=== PATIENT | female | born 1960 | race Caucasian/White ===

== ENCOUNTER 2018-09-10 14:06 | Inpatient (IN) | payer OTHER ==
[~2018-09-10] VITALS: Ht 172.7 cm; Wt 108.6 kg
[2018-09-10 14:06] VITALS: BP 125/81
[~2018-09-10 14:06] MED LIST: ACTOS 45 MG45 M1 PO; ASPIRIN325 PO; AZITHROMYCIN 2250 MG PO; BACTROBAN CREAM30 G1; CARDIZEM CD240 MG PO; CEFTIN 250 MG250 MG PO; CEFTRIAXONE2 GM IV; CELEBREX 200 M200 M1 PO; CINNAMON500 MG PO; CLEOCIN HCL150 MG PO; CLEOCIN HCL300 MG PO; CO Q-10100 MG PO; COUMADIN 2.5MG2.5 M1 PO; CYCLOBENZAPRINE10 MG PO; CYMBALTA60 MG PO; DETROL1 MG PO; DIPHENHIST25 M1 PO; DOXYCYCLINE 10100 M1 PO; ENOXAPARIN100 MG/1 M SQ; ENOXAPARIN30 MG/0.3 SQ; FISH OIL 1,001000 M2 PO; FLEXERIL PO; GLUCOPHAGE XR500 M1 PO; JANTOVEN5 MG PO; JANTOVEN7.5 MG PO; JANUVIA100 MG PO; JANUVIA25 MG; KEFLEX500 M1 PO; KRILL OIL 3001 EACH PO; LAMISIL AT 1% C12 G1 TOP; LANTUS SUBQ; LANTUS100 UNIT/M SUBQ; LEVAQUIN 250 M250 MG PO; LISINOPRIL20 MG PO; LOTRIMIN AF90 GM TP; MACROBID 100 M100 M2 PO; METOPROLOL SUCC25 M1 PO; NASAL & SINUS D30 MG PO; NORCO 5-325 TA1 EACH PO; NORCO 7.5-3251 EACH PO; NOVOLOG100 UNIT/1; NYAMYC15 GM TOP; OXYBUTYNIN 5 MG5 M1 PO; PAXIL10 MG; PREDNISONE 10 M10 MG PO; PREDNISONE 20 M20 MG PO; PROTONIX40 M1 PO; PURINETHOL50 MG PO; SILVADENE20 GM TOP; SIMVASTATIN40 MG PO; SUDAFED SINUS1 EACH PO; SYNTHROID100 MC1 PO; TRAMADOL 50 MG50 MG PO; TRIAMCINOLONE A80 G2 TOP; TRIPLE ANTIBIOT28 G1 TP; ULTRAM 50MG TAB50 MG PO; VANCO1GM IV; VIBRAMYCIN 100100 M2 PO; ZOFRAN4 MG PO; ZYRTEC 10 MG TA10 M1 PO; [UNRECOGNIZED DRUG - REMARK]
[2018-09-10] MEDS ORDERED: GLUCOTROL5 MG PO (14:17)
[2018-09-10] MEDS ORDERED: TOPROL XL25 MG PO (14:22)
[2018-09-10 14:50] LABS: ABSOLUTE NEUTROPHILS 8.2 thou/uL (1.4-8.2); BASOPHILS 0.8 % (0.0-2.0); EOSINOPHILS 0.6 % (0.0-3.0); HEMATOCRIT 45.2 % (37.0-47.0); HEMOGLOBIN 15.4 gm/dL (12.0-15.0); LYMPHOCYTES 8.5 % (24.0-44.0); MCH 31.2 pg (26.0-34.0); MCV 91.8 fL (80.0-100.0); MONOCYTES 7.6 % (1.0-8.0); PLATELET COUNT 439 thou/uL (150-400); POLYS 82.5 % (36.0-66.0); RBC 4.92 mil/uL (4.20-5.00); RDW 13.7 % (10.5-14.5)
[2018-09-10 15:11] LABS: ALBUMIN 2.6 g/dL (3.4-5.0); CALCIUM 9.7 mg/dL (8.5-10.1); CREATININE 1.3 mg/dL (0.6-1.0); POTASSIUM 5.2 mmol/L (3.5-5.1); TOTAL BILIRUBIN 0.7 mg/dL (<0.1-1.0); TOTAL PROTEIN 7.7 g/dL (6.4-8.2)
[2018-09-10 15:13] LABS: URINE BLOOD 3+ (Negative); URINE CLARITY CLOUDY; URINE COLOR YELLOW; URINE GLUCOSE-RANDOM* 3+ (Negative); URINE KETONES 1+ (Negative); URINE NITRITE-REFLEX NEGATIVE (Negative); URINE PROTEIN (DIPSTICK) 1+ (Negative); URINE SPECIFIC GRAVITY 1.025 (1.005-1.035); URINE UROBILINOGEN 0.2 E.U./dl (0.2-1.0)
[2018-09-10 15:15] LABS: ICTOTEST (BILI CONFIRMATORY) Negative (Negative); URINE BILIRUBIN NEGATIVE (Negative); URINE LEUKOCYTES-REFLEX 1+ (Negative)
[2018-09-10 15:22] LABS: BACTERIA-REFLEX >30 Many /HPF (None Seen); CASTS None Seen /LPF (None Seen); CRYSTALS None Seen /LPF (None Seen); SQUAMOUS None Seen /LPF (0-3); URINE RBC >20 Many /HPF (0-2); URINE WBC-REFLEX >25 Many /HPF (0-5); WBC CLUMPS Packed (None Seen); YEAST-REFLEX Present (None Seen)
[2018-09-10 15:41] LABS: INR 3.6
[2018-09-10 16:51] VITALS: BP 143/77
[2018-09-10 17:16] VITALS: BP 129/85
[2018-09-10 17:52] VITALS: BP 131/89
[2018-09-10] MEDS ORDERED: COUMADIN 1MG TAB1 M1 PO (18:18)
[2018-09-10] MEDS ORDERED: APRISO0.375 GM PO (18:24)
[2018-09-10] MEDS ORDERED: LOPERAMIDE 2 MG2 M1 PO (18:25)
[2018-09-10] MEDS ORDERED: BENADRYL25 MG PO (18:26)
[2018-09-10 19:09] LABS: TSH 0.901 uIU/mL (0.358-3.740)
--- NOTE | 2018-09-10 19:57 | NUR ---
PT WAS APPROACHED AT HER HOME TODAY TO BE EVICTED..SHE STATED SHE NEEDED TO HAVE EMS CALLED RE HER HEMORRHIODS...SHE DOES NOT SEEM TO BE VERY CLEAR ON WHEN TO TAKE HER MEDS...SHE HAD 2 LARGE BAGS OF HOME MEDS THAT WERE SENT TO PHARMACY FOR STORAGE UNTIL SHE DISCHARGES..
[2018-09-10 20:00] VITALS: BP 139/78
[2018-09-10 23:39] VITALS: BP 122/82
[2018-09-11 03:22] VITALS: BP 137/90
--- NOTE | 2018-09-11 03:53 | NUR ---
ASSUMED PT CARE AROUND 1900. A&OX4. C/O BLE LEG PAIN. PAIN MEDICATION GIVEN WITH PARTIAL RELIEF. UP W/ ASSIST AND WALKER TO BTR. PICTURE AND BARRIER CREAM APPLIED TO COCCYX WOUND. NYSTATIN POWDER APPLIED TO REDNESS UNDER PANUS. PT SLEPT MOST OF THE NIGHT. RESP EVEN AND UNLABORED. FALL PRECAUTIONS IN PLACE. PROGRESSING TOWARD POC GOALS. WILL CONTINUE TO MONITOR FURTHER.
[2018-09-11 06:19] LABS: HEMATOCRIT 40.6 % (37.0-47.0); HEMOGLOBIN 13.9 gm/dL (12.0-15.0); MCH 31.1 pg (26.0-34.0); MCHC 34.2 g/dL (28.0-37.0); MCV 90.9 fL (80.0-100.0); RBC 4.47 mil/uL (4.20-5.00); RDW 13.3 % (10.5-14.5); WBC 8.7 thou/uL (4.0-11.0)
[2018-09-11 06:20] LABS: PLATELET COUNT 357 thou/uL (150-400)
[2018-09-11 06:30] LABS: CALCIUM 9.1 mg/dL (8.5-10.1); CREATININE 0.9 mg/dL (0.6-1.0); MAGNESIUM 1.3 mg/dL (1.8-2.4)
[2018-09-11 06:32] LABS: POTASSIUM 3.5 mmol/L (3.5-5.1)
[2018-09-11 07:11] LABS: ABSOLUTE NEUTROPHILS 4.2 thou/uL (1.4-8.2); ANISOCYTOSIS SLIGHT; ATYPICAL LYMPHS 4 %; METAMYELOCYTES 1 %
[2018-09-11 07:44] VITALS: BP 129/86
[2018-09-11 09:23] LABS: HEMATOCRIT 43.3 % (37.0-47.0); HEMOGLOBIN 14.7 gm/dL (12.0-15.0)
--- NOTE | 2018-09-11 09:32 | NUR ---
WOUND CONSULT: PT. WAS SEEN TODAY FOR SKIN EVALUATION. PT. HAS STAGE 2 PRESSURE ULCERS TO HER LEFT AND RIGHT BUTTOCK. PT. REPORTS THAT SHE HAS BEEN SPENDING THE MAJORITY OF HER TIME IN HER RECLINER AT HOME. PT. WAS EDUCATED ABOUT THE IMPORTANCE OF TURNING AND REPOSITING. RECOMMENDATIONS: WOUND CARE TO ALL SITES: GENTLY CLEANSE AREA WITH WOUND CLEANSER OR NORMAL SALINE, APPLY Z-GUARD, LEAVE OPEN TO AIR, COMPLETE CARES DAILY AND PRN. AMIRA FUENTES ROSEANNE PUMP PT. AND STAFF NURSE WERE INSTRUCTED PLAN OF CARE.
[2018-09-11] MEDS ORDERED: FLEXERIL PO (09:57)
[2018-09-11 11:01] LABS: PROTIME 31.4 Seconds (9.3-11.4)
--- NOTE | 2018-09-11 11:12 | NUR ---
Nutrition: assess d/t wound. Pt admitted for hemmorhoids. States she has lost ~250 lbs over past several years, down 15-20 lbs in 3 months. This is desired and planned weight loss. Pt is willing to trial unflavored Lars mixed with liquids/foods. Will order BID. Obtained food preferences. Otherwise consider low risk.
[2018-09-11 11:34] VITALS: BP 132/84
--- NOTE | 2018-09-11 12:22 | NUR ---
ASSESSMENT: CM REVIEWED CHART AND MET WITH PATIENT AT THE BEDSIDE. PT WAS ADMITTED WITH UTI/WEAKNESS/RECTAL BLEEDING. PT REPORTS THAT SHE LIVES IN AN APT ALONE BUT STATES SHE GOT A NOTICE OF EVICTION IN MAY AND STATES SHE HAD STILL BE STAYING THERE BUT THEN THE POLICE CAME YESTERDAY TO GET HER OUT AND BROUGHT HER TO THE HOSPITAL. PT REPORTS THAT THEY CHANGED THE LOCKS ON HER DOOR AND SHE IS UNABLE TO GO BACK THERE. SHE STATES SOMEONE IS ALLOWED TO GET HER STUFF IF THEY CHECK IN WITH THE [employer] DIPPING MACHINE OPERATOR. PT REPORTS THAT SHE LIVES IN THE APT ALONE. SHE STATES SHE HAS THREE SISTERS IN THE AREA BUT NONE OF THEM ARE WILLING TO HELP HER OR PROVIDE ASSISTANCE STATING THEY SAY THEY HAVE HELPED HER ENOUGH OVER THE YEARS AND WILL NO LONGER DO SO. PT REPORTS SHE WAS USING A WALKER AT HOME FOR AMBULATION. PT REPORTS SHE HAD A SHOWER SEAT. PT HAS HX OF NONCOMPLIANCE. PT HAS BEEN TO [facility] IN THE PAST, [facility] [place] FOR [facility] AND REPORTS HAVING [facility] IN THE PAST. PT STATES SHE IS UNSURE WHERE SHE WILL GO AT DISCHARGE. PT/OT EVALS ARE PENDING AT THIS TIME, OT IS RECOMMENDING [facility] AND PHYSICAL THERAPY HAS YET TO SEE PATIENT. CM DISCUSSED PATIENT COULD POSSIBLE QUALIFY FOR SNF BUT WOULD HAVE TO GET INSURANCE AUTH. CM ALSO STATED WE WOULD SENT A REFERRAL TO [facility] TO SEE IF PATIENT QUALIFIES FOR MEDICAID. NEURO PSYCH HAS ALSO BE CONSULTED TO SEE PATIENT. CM WILL CONTINUE TO FOLLOW TO ASSIST NEEDED.
[2018-09-11 16:28] VITALS: BP 145/96
--- NOTE | 2018-09-11 17:59 | NUR ---
SPOKE WITH PATIENT ABOUT THE NEED TO TAKE MEDS PRESCRIBED AT HOME...SHE REPORTS TAKING MEDS/INSULIN ON A VERY LOOSE SCHEDULE..SHE STATED SHE OFTEN SKIPS INSULIN AND OTHER MEDS BECAUSE SHE FALLS ASLEEP...
[2018-09-11 20:46] VITALS: BP 136/83
[2018-09-12 04:57] LABS: INR 2.5; PROTIME 26.4 Seconds (9.3-11.4)
[2018-09-12 04:59] LABS: HEMATOCRIT 42.8 % (37.0-47.0); HEMOGLOBIN 14.2 gm/dL (12.0-15.0); MCH 30.4 pg (26.0-34.0); MCHC 33.2 g/dL (28.0-37.0); MCV 91.5 fL (80.0-100.0); RBC 4.67 mil/uL (4.20-5.00); WBC 16.9 thou/uL (4.0-11.0)
[2018-09-12 05:01] LABS: CALCIUM 8.1 mg/dL (8.5-10.1); CREATININE 0.8 mg/dL (0.6-1.0); MAGNESIUM 1.1 mg/dL (1.8-2.4); POTASSIUM 4.3 mmol/L (3.5-5.1)
[2018-09-12 06:00] VITALS: BP 122/77
--- NOTE | 2018-09-12 07:42 | NUR ---
Pt. slept fair during the night. Medicated for pain x1 with some relief. Up with assist to bathroom using gait belt and walker. Bed alarm on , calls appropriately. Z guard applied to eduardo buttocks.
[2018-09-12 07:43] VITALS: BP 146/98
[2018-09-12 11:37] VITALS: BP 109/81
[2018-09-12 11:53] VITALS: BP 94/55
--- NOTE | 2018-09-12 14:02 | NUR ---
on-going assessment: CM REVIEWED CHART. PATIENT IS SLOWLY PROGRESSING TOWARDS DISCHARGE GOALS AND PHYSICIAN FEELS SHE MAY BE STABLE TO SNF POSSIBLY 1-2 DAYS. CM NOTIFIED [facility] ([phone]) ADMISSION WHO STATES SHE HAS STARTED THE AUTHORIZATION PROCESS. CM FAXED UPDATED CLINICAL TO FACILITY. PATIENT CAN POSSIBLE DISCHARGE TO SNF THIS WEEKEND PENDING INSURANCE AUTH. [facility] PHONE:[phone] FAX:[phone].
--- NOTE | 2018-09-12 15:42 | NUR ---
Assumed care of patient at 0700. Vitals have been stable. Complaints of chronic lower back and leg pain; controlled with PRN Tramadol and Flexeril. Alert and oriented x4, forgetful at times. Patient incontinent of urine this morning; displays urgency. Urine is cloudy, yellow, foul smelling. Up with one assist, gait belt and walker. Fall precautions in place. On clear liquids today; bowel prep started at 1300. Patient tolerating well so far. Has had 2 small, loose BMs. No signs of bleeding. To be NPO after midnight for colonoscopy tomorrow. Consent signed. Progressing towards POC. Will continue to monitor.
[2018-09-12 15:45] VITALS: BP 108/78
[2018-09-12 20:40] VITALS: BP 119/63
[2018-09-13 03:52] LABS: INR 2.4; PROTIME 25.4 Seconds (9.3-11.4)
[2018-09-13 04:10] LABS: HEMATOCRIT 41.6 % (37.0-47.0); HEMOGLOBIN 13.9 gm/dL (12.0-15.0); MCH 30.7 pg (26.0-34.0); MCHC 33.5 g/dL (28.0-37.0); MCV 91.7 fL (80.0-100.0); RBC 4.54 mil/uL (4.20-5.00); RDW 13.6 % (10.5-14.5); WBC 10.3 thou/uL (4.0-11.0)
[2018-09-13 05:00] VITALS: BP 109/74
--- NOTE | 2018-09-13 07:37 | NUR ---
ASSUMED PT CARE AROUND 1900. A&OX4, FORGETFUL. BOWEL PREP COMPLETED PER ORDER. VSS. AFEBRILE. NPO SINCE MIDNIGHT FOR COLONOSCOPY TODAY. C/O BACK AND BLE PAIN. PAIN MEDICATION GIVEN WITH SOME RELIEF. FALL PRECAUTIONS IN PLACE. PROGRESSING TOWARD POC GOALS. WILL CONTINUE TO MONITOR FURTHER.
[2018-09-13 07:49] VITALS: BP 112/77
[2018-09-13 11:58] VITALS: BP 132/83
[2018-09-13 16:35] VITALS: BP 139/83
--- NOTE | 2018-09-13 18:20 | NUR ---
Lo with SNF asking if she can be reached via [employer] ([phone]) on 09/14/18 with discharge plans. states that insurance approval is valid for 48 hrs which expires 09/14/18 at 1700.
[2018-09-13 20:11] VITALS: BP 150/97
[2018-09-14 04:51] LABS: HEMATOCRIT 43.3 % (37.0-47.0); HEMOGLOBIN 14.8 gm/dL (12.0-15.0); MCH 31.2 pg (26.0-34.0); MCHC 34.2 g/dL (28.0-37.0); RBC 4.75 mil/uL (4.20-5.00); RDW 13.8 % (10.5-14.5); WBC 8.8 thou/uL (4.0-11.0)
--- NOTE | 2018-09-14 04:55 | NUR ---
ASSUMED PT CARE AROUND 1900. PLEASANT AND COOPERATIVE. A&OX4. C/O GENERALIZED PAIN. BOWEL PREP COMPLETED FOR COLONOSCOPY TODAY. PT SLEPT MOST OF THE NIGHT. RESP EVEN AND UNLABORED. IVF INFUSING ORDERED. UP TO BSC. TOLERATED WELL. FALL PRECAUTIONS IN PLACE. PROGRESSING TOWARD POC GOALS. WILL CONTINUE TO MONITOR FURTHER.
[2018-09-14 05:02] LABS: INR 1.9; PROTIME 20.2 Seconds (9.3-11.4)
[2018-09-14 05:12] VITALS: BP 127/62
[2018-09-14 08:06] VITALS: BP 147/89
[2018-09-14 11:53] VITALS: BP 176/97
[2018-09-14 16:41] VITALS: BP 132/84
--- NOTE | 2018-09-14 18:11 | NUR ---
ASSUMED PATIENT CARE AT 0700. A/O X4. COLONSCOPY CANCELED DUE TO INR 1.9. PLANNING DO IT TOMORROW. STB TO BSC. WILL NPO AFTER MIDNIGHT. KEEP MONITOR.
[2018-09-14 19:26] VITALS: BP 149/77
--- NOTE | 2018-09-15 03:52 | NUR ---
PATIENT IS SLOWLY PROGRESSING IN HER CARE PLAN. VITAL SIGNS STABLE WITH PATIENT HAVING NO COMPLAINTS OF PAIN OR NAUSEA. PATIENT IS FULLY ORIENTED AND ABLE TO CALL APPROPRIATELY FOR REQUESTS AND PARTICIPATE IN CARE. PATIENT HAD A HARD TIME COMPLETING BOWEL PREP FOR TODAYS COLONOSCOPY. UP DOZENS OF TIMES TO BEDSIDE COMMODE PATIENT WAS UNABLE TO COMPLETE MIRALAX UNTIL 0200. BOWEL MOVEMENTS ARE STILL LIGHT BROWN. NURSE TO CALL GI DOCTOR IN MORNING TO UPDATE ON PROGRESS AND POSSIBLY RECEIVE ORDERS FOR ENEMA. PATIENT IS UPSET AND REGRETS BEING ADAMANT IN GOING OFF CLEAR LIQUID DIET YESTERDAY. SHE IS ANXIOUS TO HAVE PROCEDURE "BEHIND ME." UP MANY TIMES TO BEDSIDE COMMODE WITH ASSISTANCE INCIDENT FREE. CONTINUE PLAN OF CARE.
[2018-09-15 04:35] VITALS: BP 160/99
[2018-09-15 09:05] VITALS: BP 135/94
[2018-09-15 09:24] LABS: INR 1.7; PROTIME 18.2 Seconds (9.3-11.4)
[2018-09-15 13:55] VITALS: BP 112/76
--- NOTE | 2018-09-15 14:25 | NUR ---
ON-GOING ASSESSMENT: PT WAS TO HAVE COLONOSCOPY THIS WEEKEND WHICH WAS POST-PONED DUE TO HER INR. PT HAD INSURANCE AUTH THAT WAS GIVEN ON SATURDAY BUT HAS NOW DUE TO 48 HOUR RULE. CM FAXED UPDATED CLINICAL TO [facility] AND REQUESTED THAT THEY RE-SEEK INSURANCE AUTHORIZATION. CM ALSO LEFT A VM WITH INSURANCE TO NOTIFY THEM. CM SPOKE WITH PATIENT TO UPDATE HER. CM ALSO RECEIVED A NOTE STATING PATIENTS SISTER DAMIÁN ([phone]) REQUESTED TO BE CONTACTED. CM SPOKE WITH PATIENT AND PATIENT GIVES VERBAL CONSENT FOR CM TO SPEAK WITH HER. CM ATTEMPTED TO REACH DAMIÁN BUT VM WAS LEFT. CM WILL CONTINUE TO FOLLOW TO ASSIST NEEDED.
[2018-09-15] MEDS ORDERED: NYAMYC15 GM TOP (15:05)
[2018-09-15] MEDS ORDERED: MAGNESIUM400 MG PO (15:05)
[2018-09-15] MEDS ORDERED: PANTOPRAZOLE SO40 M1 PO (15:05)
[2018-09-15] MEDS ORDERED: ACETAMINOPHEN325 M1 PO (15:05)
[2018-09-15 15:45] VITALS: BP 130/82
--- NOTE | 2018-09-15 16:57 | NUR ---
PATIENT HAD COLONOSCOPY TODAY TOLERATED WELL. NO BLEEDING NOTED. VSS. PROGRESSING TOWARDS POC GOALS.
[2018-09-15 20:22] VITALS: BP 135/84
--- NOTE | 2018-09-16 03:34 | NUR ---
PATIENT IS PROGRESSING IN HER CARE PLAN. VITAL SIGNS STABLE WITH PATIENT HAVING NO COMPLAINTS OF NAUSEA. PATIENT DID COMPLAIN OF GENERALIZED PAIN WHICH WAS TREATED EFFECTIVELY WITH MEDICATION. FULLY ORIENTED, PATIENT IS ABLE TO CALL APPROPRIATELY FOR REQUESTS. WOUND CARE PROVIDED PER ORDER. UP MULTIPLE TIMES TO BEDSIDE COMMODE WITH ASSISTANCE INCIDENT FREE. PATIENT IS ANXIOUS FOR POTENTIAL DISCHARGE TO REHAB TODAY PENDING INSURANCE AUTHORIZATION. CONTINUE PLAN OF CARE.
[2018-09-16 04:34] VITALS: BP 115/62
[2018-09-16 08:22] VITALS: BP 152/96
--- NOTE | 2018-09-16 10:47 | NUR ---
WOUND CARE FOLLOW UP; FOLLOW UP ASSESSMENT COMPLETED. COCCYX WOUND IS STABLE AT THIS TIME. THE PANNOUS AREAS REMAIN ANGRY RED. PATIENT STATES DISCHAGE TODAY IS LIKLEY. RECOMMENDATIONS; D/C NYSTATIN, CHANGE TO INTERDRY. DISCUSSED WITH RN
[2018-09-16 12:07] VITALS: BP 124/87
--- NOTE | 2018-09-16 12:52 | NUR ---
josey sent today's pt, ot therapy notes to [facility] fax [phone]
--- NOTE | 2018-09-16 13:31 | NUR ---
ON-GOING ASSESSMENT: CM REVIEWED CHART. CM SPOKE WITH ADMISSIONS AT [facility] AND NOTIFIED DOBIE WORKER TO FAX UPDATES ONCE THEY ARE IN. CM ALSO SPOKE WITH INSURANCE STATING WE ARE WAITING ON INSURANCE AUTH AND PT/OT WOULD BE SUBMITTED SOON EVALS WERE IN TODAY. CM FAXED INFORMATION TO INSURANCE AND INSURANCE AUTH IS STILL PENDING AT THIS TIME. CM SPOKE WITH PATIENT TO UPDATE HER WELL WITH HER SISTER DAMIÁN PER PATIENTS REQUEST.
[2018-09-16 16:56] VITALS: BP 102/61
--- NOTE | 2018-09-16 18:20 | NUR ---
NO CHANGE ON THIS SHIFT. STILL WAITING ON INSURANCE AUTH. NO BLEEDING NOTED. PROGRESSING TOWARDS POC GOALS.
[2018-09-16 19:31] VITALS: BP 100/59
[2018-09-17 04:26] VITALS: BP 141/91
--- NOTE | 2018-09-17 05:27 | NUR ---
ASSUMED PT CARE AROUND 1900. A&OX4. C/O GENERALIZED PAIN. PAIN MEDICATION GIVEN WITH GOOD RELIEF. PT SLEPT MOST OF THE NIGHT. RESP EVEN AND UNLABORED. UP TO BSC. FALL PRECAUTIONS IN PLACE. PROGRESSING TOWARD POC GOALS. WILL CONTINUE TO MONITOR FURTHER.
[2018-09-17 05:58] LABS: INR 1.2; PROTIME 12.4 Seconds (9.3-11.4)
[2018-09-17 07:43] VITALS: BP 141/86
--- NOTE | 2018-09-17 10:35 | NUR ---
ON-GOING ASSESSMENT: CM REQUESTED PT/OT EVAL PATIENT THIS AM. CM FAXED OT EVAL SINCE IT WAS IN THIS AM TO [facility] DUE TO THEIR REQUEST FOR THEM TO SUBMIT TO INSURANCE TO SEE IF THEY WILL APPROVE AUTH.
--- NOTE | 2018-09-17 11:10 | NUR ---
Nutrition: assess d/t LOS follow-up. Pt states that she is eating well and has liked the food. She does not like Lars, will d/c. Possible d/c to rehab facility soon, pending insurance approval. Consider low risk.
[2018-09-17 11:19] VITALS: BP 120/72
--- NOTE | 2018-09-17 15:40 | NUR ---
Attempted to call report to [phone] - staff states RN is busy and cannot take report. Provided with phone number to call back for report and updated that patient should be picked up around 1600.
--- NOTE | 2018-09-17 16:55 | NUR ---
Assumed care of patient at 0700. Vitals have been stable. Patient alert and oriented x4, pleasant. Complaints of generalized pain, treated with Tylenol. Voiding adequately. Up with SBA and walker to bathroom. Fall precautions in place; calls appropriately. Wound care completed per orders. Picture taken and placed in chart in anticipation of discharge. Discharge orders received and insurance authorization obtained. Belongings gathered. Home medications returned to patient. IV and telemetry discontinued. Attempted to call report to facility x2. Unable to reach RN for report. Provided staff with callback number. Transported to facility via wheelchair.
--- NOTE | 2018-09-18 12:07 | PATH ---
[facility] [place] [address] PATHOLOGY RPT PROCEDURE Name: YAZMIN TODD Room #: 363-P DIS IN M.R.#: [id number] ������������������ Admission: 09/10/18 ������������������ Date of : 56 Discharge: 09/17/18 Report #: [id number] Path Case #: [id number] [facility] Accession Number: [id number] . 01 Material submitted: . PART A: RANDOM COLON AT 80 CM PART B: RANDOM BX AT 70 CM PART C: RANDOM BX AT 60 CM PART D: RANDOM BX AT 50 CM PART E: RANDOM BX AT 40 CM PART F: RANDOM BX AT 30 CM PART G: RANDOM BX AT 20 CM PART H: RANDOM BX AT 10 CM . 01 Clinical history: . IBB Colitis rule out dysplasia . 02 Diagnosis: A. Large intestinal mucosa, random at 80 cm, endoscopic biopsy: - Mild chronic active colitis, history of Crohn's disease. - Negative for dysplasia or malignancy. . B. Large intestinal mucosa, random at 70 cm, endoscopic biopsy: - Mild chronic active colitis, history of Crohn's disease. - Negative for dysplasia or malignancy. . C. Large intestinal mucosa, random at 60 cm, endoscopic biopsy: - One fragment showing mild chronic active colitis, history of Crohn's disease. - Negative for dysplasia or malignancy. . D. Large intestinal mucosa, random at 50 cm, endoscopic biopsy: - Quiescent colitis, history of Crohn's disease. - Negative for dysplasia or malignancy. . E. Large intestinal mucosa, random at 40 cm, endoscopic biopsy: - Quiescent colitis, history of Crohn's disease. - Negative for dysplasia or malignancy. . F. Large intestinal mucosa, random at 30 cm, endoscopic biopsy: - Quiescent colitis, history of Crohn's disease. - Negative for dysplasia or malignancy. . G. Large intestinal mucosa, random at 20 cm, endoscopic biopsy: - Mild chronic active colitis, history of Crohn's disease. - Negative for dysplasia or malignancy. . [address] [address] PATHOLOGY RPT PROCEDURE Name: YAZMIN TODD Room #: 363-P DIS IN M.R.#: [id number] ������������������ Admission: 09/10/18 ������������������ Date of : 56 Discharge: 09/17/18 Report #: [id number] Path Case #: [id number] H. Large intestinal mucosa, random at 10 cm, endoscopic biopsy: - Mild chronic active colitis, history of Crohn's disease. - Negative for dysplasia or malignancy. (IUV:pit 09/17/2018) QTP/09/17/2018 . 02 Electronically signed: . Lani Sarkar MD, Pathologist NPI- [id number] . 01 Gross description: . A. The specimen is received in formalin, labeled "Teson, Yazmin, BX random at 80 cm" and consists of 4 fragments of redmond tissue measuring between 0.2 x 0.2 cm and 0.4 x 0.3 cm. They are entirely submitted in A1. . B. The specimen is received in formalin, labeled "Teson, Yazmin, BX random at 70 cm" and consists of 4 fragments of redmond tissue measuring between 0.3 x 0.2 cm and 0.5 x 0.2 cm. They are entirely submitted in B1. . C. The specimen is received in formalin, labeled "Teson, Yazmin, BX random at 60 cm" and consists of multiple fragments of redmond tissue measuring 1.0 x 0.6 x 0.2 cm in aggregate which are entirely submitted in C1. . D. The specimen is received in formalin, labeled "Teson, Yazmin, random BX at 50 cm" and consists of 4 fragments of redmond-brown tissue measuring 0.3 x 0.2 x 0.1 cm each. They are entirely submitted in D1. . E. The specimen is received in formalin, labeled "Teson, Yazmin, random BX at 40 cm" and consists of 3 fragments of hodgson-redmond tissue measuring between 0.4 x 0.2 cm and 0.5 x 0.2 cm. They are entirely submitted in E1. . F. The specimen is received in formalin, labeled "Teson, Yazmin, random BX at 30 cm" and consists of 5 fragments of hodgson-redmond tissue measuring 1.1 x 0.5 x 0.2 cm in aggregate which are entirely submitted in F1. . G. The specimen is received in formalin, labeled "Teson, Yazmin, random BX at 20 cm" and consists of 6 fragments of hodgson-redmond tissue measuring 1.2 x 0.6 x 0.2 cm in aggregate which are entirely submitted in G1. . H. The specimen is received in formalin, labeled "Teson, Yazmin, random BX at 10 cm" and consists of 4 fragments of hodgson-redmond tissue measuring between 0.3 x 0.2 cm and 0.4 x 0.3 x 0.1 cm. They are entirely submitted in H1. (SDY; 09/16/2018) SYU/SYU . 02 Pathologist provided ICD-10: K52.9, Z87.19 [facility] [address] [place] [address] PATHOLOGY RPT PROCEDURE Name: YAZMIN TODD Room #: 363-P DIS IN M.R.#: [id number] ������������������ Admission: 09/10/18 ������������������ Date of : 56 Discharge: 09/17/18 Report #: [id number] Path Case #: [id number] . 02 CPT . [id number], [id number], [id number], [id number], [id number], [id number], [id number], [id number] Specimen Comment: A courtesy copy of this report has been sent to Specimen Comment: [phone], , . Specimen Comment: Report sent to ,DR MAYEN / DR RUEDA Performed at: 01 [facility] [address], [place], [place] [id number] MD Deangelo Michelle MD Phone: [phone] Performed at: 02 [facility] [address] [place], [place] [id number] MD Lani Sarkar MD Phone: [phone]
== END 2018-09-17 16:50 | DRG 871 ==
LOC: ER 14:06 → EROBS 16:26 → 3W 16:26
PROVIDERS: Internal Medicine Gastroenterology; Nurse Practitioner; Physician Assistant; ADMIT Internal Medicine
PROC: 0DBE8ZX Excision of Large Intestine, Via Natural or Artificial Opening Endoscopic, Diagnostic (ICD-10-PCS; principal; 2018-09-15)
DX: A41.9 Sepsis, unspecified organism (principal); E43 Unspecified severe protein-calorie malnutrition; N17.9 Acute kidney failure, unspecified; N39.0 Urinary tract infection, site not specified; K62.5 Hemorrhage of anus and rectum; K62.6 Ulcer of anus and rectum; K50.911 Crohn's disease, unspecified, with rectal bleeding; N18.9 Chronic kidney disease, unspecified; E87.5 Hyperkalemia; E11.22 Type 2 diabetes mellitus with diabetic chronic kidney disease; I12.9 Hypertensive chronic kidney disease with stage 1 through stage 4 chronic kidney disease, or unspecified chronic kidney disease; E66.01 Morbid (severe) obesity due to excess calories; G47.33 Obstructive sleep apnea (adult) (pediatric); L98.7 Excessive and redundant skin and subcutaneous tissue; F32.9 Major depressive disorder, single episode, unspecified; G31.84 Mild cognitive impairment of uncertain or unknown etiology; E11.65 Type 2 diabetes mellitus with hyperglycemia; M79.7 Fibromyalgia; E03.9 Hypothyroidism, unspecified; M19.90 Unspecified osteoarthritis, unspecified site; R32 Unspecified urinary incontinence; E11.649 Type 2 diabetes mellitus with hypoglycemia without coma; Z68.36 Body mass index [BMI] 36.0-36.9, adult; Z86.718 Personal history of other venous thrombosis and embolism; Z86.711 Personal history of pulmonary embolism; Z91.19 Patient's noncompliance with other medical treatment and regimen; Z79.82 Long term (current) use of aspirin; Z79.899 Other long term (current) drug therapy; Z88.0 Allergy status to penicillin; Z88.2 Allergy status to sulfonamides; Z88.1 Allergy status to other antibiotic agents; Z79.84 Long term (current) use of oral hypoglycemic drugs
CPT/HCPCS: 10879; 62110; 62900; 70005